=== PATIENT | male | born 1980 | race Caucasian/White ===

== ENCOUNTER → 2016-09-24 | Outpatient (CLI) | payer OTHER ==
[2016-07-30 10:43] VITALS: BP 117/71
[~2016-09-24] MED LIST: CYCL10TA2 PO; CYCL5TAB PO; DOCU-27 PO; HYDR-2666 PO; OXYC1TAB7 PO; SERT25TA PO; sleeping pill
--- NOTE | 2016-09-24 11:37 | KCIC ---
PROCEDURE Lumbar radiographs HISTORY Status post lumbar fusion COMPARISON None FINDINGS Three views of the lumbar spine are submitted. There is posterolateral fusion hardware with intact bilateral pedicle screws stabilizing intact vertical rods at L4-L5, also interbody graft at L4-5. Vertebral body stature is preserved. There is negligible posterior subluxation L2 relative to L3. IMPRESSION There is intact posterolateral fusion hardware at L4-L5. Electronically signed by: Jacobo Gonsales MD (Sep 24, 2016 11:35:59)
== END | disposition home or self-care (01) ==
LOC: KCIC 10:58
PROVIDERS: ATTEND Neurological Surgery
DX: S33.120A Subluxation of L2/L3 lumbar vertebra, initial encounter (principal); X58.XXXA Exposure to other specified factors, initial encounter; Y93.89 Activity, other specified; Y92.89 Other specified places as the place of occurrence of the external cause; Y99.8 Other external cause status; Z98.1 Arthrodesis status
CPT/HCPCS: 72100

== ENCOUNTER → 2016-10-22 | Outpatient (CLI) | payer OTHER ==
[2016-07-30 10:43] VITALS: BP 117/71
--- NOTE | 2016-10-22 12:56 | KCIC ---
Two views lumbar spine Indication: Reason For Study Reason: S/P LUMBAR FUSION 07/24 / Spl. Instructions: / History: Comparison: September 24, 2016 Findings: Alignment and curvature are within normal limits. There is posterior spinal fusion L4-L5. No compression deformity. SI joints are open and corticated. Impression: - Stable exam demonstrating posterior lumbar fusion L4-L5 with maintenance of alignment. Electronically signed by: Rolando Peres (Oct 22, 2016 12:55:04)
== END | disposition home or self-care (01) ==
LOC: KCIC 12:26
PROVIDERS: ATTEND Neurological Surgery
DX: M43.26 Fusion of spine, lumbar region (principal)
CPT/HCPCS: 72100

== ENCOUNTER → 2017-03-20 | Outpatient (CLI) | payer OTHER ==
[2016-07-30 10:43] VITALS: BP 117/71
[~2017-03-20] MED LIST changes: +DOCU-109 PO; -DOCU-27 PO; -HYDR-2666 PO; +HYDR-2758 PO
--- NOTE | 2017-03-20 09:48 | KCIC ---
Indication: Postop lumbar fusion and low back pain. Time of exam 8:47 AM Comparison is made with prior radiographs from 10/22/2016. Curvature and alignment is normal. There are postop changes of posterior instrumented fusion with vertical stabilization rods and pedicle screws transfixing the L4-5 level. The hardware appears intact. No definite fracture or loosening is seen. The vertebral body heights are maintained. IMPRESSION: Stable postoperative changes when compared with exam from 10/22/2016. Electronically signed by: Jimmy Waggoner MD (03/20/2017 9:44 AM) [id number]
== END | disposition home or self-care (01) ==
LOC: KCIC 08:36
PROVIDERS: ATTEND Neurological Surgery
DX: M43.26 Fusion of spine, lumbar region (principal)
CPT/HCPCS: 72100

== ENCOUNTER → 2017-07-24 | Outpatient (CLI) | payer OTHER ==
[2016-07-30 10:43] VITALS: BP 117/71
--- NOTE | 2017-07-24 11:03 | KCIC ---
KNEE 3 VIEWS LEFT Clinical Indication: Left knee pain Comparison: None. Findings: There is no acute fracture or dislocation. The tricompartmental joint spaces are maintained. The patella is in anatomic position. There is no soft tissue abnormality. There is no joint effusion. IMPRESSION: No acute bone abnormality. Electronically signed by: Jason Thomas MD (07/24/2017 10:59 AM) [id number]
== END | disposition home or self-care (01) ==
LOC: KCIC 07:54
PROVIDERS: ATTEND Nurse Practitioner Family
DX: M25.562 Pain in left knee (principal)
CPT/HCPCS: 73562